=== PATIENT | female | born 1970 | race Caucasian/White ===

== ENCOUNTER 2019-03-17 13:11 | Day surgery (SDC) | payer BC ==
[2019-03-17] VITALS (7 sets, daily range): BP systolic 102–119; BP diastolic 58–75; PULSE 82–109; TEMP 97.2–98.3
[~2019-03-17] VITALS: Ht 152.4 cm; Wt 67.2 kg
[2019-03-17] MEDS ORDERED: HCTZ 25MG TAB25 MG PO (14:27)
[2019-03-17] MEDS ORDERED: INDERAL 20MG20 MG PO (14:27)
[2019-03-17] MEDS ORDERED: FLOMAX 0.40.4 MG/CAP PO (14:27)
[2019-03-17] MEDS ORDERED: ADVIL200 MG PO (14:28)
--- NOTE | 2019-03-17 14:30 | NUR ---
TO RM AT 1335- CALL LIGHT IN REACH NO ONE WITH PATIENT AT THIS TIME WILL NEED TO CALL FOR RIDE HOME
--- NOTE | 2019-03-17 18:05 | NUR ---
Pt to [facility] via cart from PACU. Pt awake and alert. Rates pain to lower abdomen 2/10 and describes pain as "somewhat burning." Pt denies nausea. Water given per pt request. No visitors are here with pt at this time. Friend "Nahed" called for ride. Message left. Will continue to monitor. Call light within reach.
--- NOTE | 2019-03-17 18:20 | NUR ---
Pt continues to rest. Tolerating water without difficulties. Denies needs. Call light within reach.
[2019-03-17] MEDS ORDERED: NORCO 325 MG-51 TAB PO (18:28)
[2019-03-17] MEDS ORDERED: PYRIDIUM 100MG100 MG PO (18:29)
--- NOTE | 2019-03-17 18:35 | NUR ---
Pt continues to rest. Denies needs. Pt watches tv and uses cell phone. Call light within reach.
--- NOTE | 2019-03-17 18:50 | NUR ---
Pt up to restroom with stand by assistance. Pt voids 50ml straw colored urine. Urine strained with no stones/gravel observed. Pt c/o back pain. Pain pill offered. Pt states "Can I just have half of one. They make me to loopy." Percocet 5mg 0.5 tablet po given. Crackers provided. Will continue to monitor.
--- NOTE | 2019-03-17 19:20 | NUR ---
Pt up to restroom with stand by assistance. Pt voids 200ml straw colored urine. Pt back to bed. Will continue to monitor. Call light within reach.
--- NOTE | 2019-03-17 19:50 | NUR ---
Pt up to void. Pt voids 200ml of straw colored urine. Urine strained with no stones observed. Pt back to room. Friend and ride home are here. Call light within reach.
--- NOTE | 2019-03-17 20:00 | NUR ---
Discharge instructions reviewed. Pt voices understanding. IV site discontinued with all parts intact. Pt up to dress. Call light within reach.
--- NOTE | 2019-03-17 20:10 | NUR ---
Pt escorted to private car via wheel chair. Pt accompanied home by her friend.
== END 2019-03-17 20:10 | disposition home or self-care (01) ==
LOC: SDCO 13:11
DX: N20.1 Calculus of ureter (principal); G43.909 Migraine, unspecified, not intractable, without status migrainosus; Z90.710 Acquired absence of both cervix and uterus; Z88.5 Allergy status to narcotic agent; Z87.891 Personal history of nicotine dependence; Z84.1 Family history of disorders of kidney and ureter; I10 Essential (primary) hypertension
CPT/HCPCS: C1769; J0690; J1100; J2405; J2704; J3010; J7120; Q9967